=== PATIENT | female | born 1990 | race Caucasian/White ===

== ENCOUNTER 2023-03-28 10:57 | Emergency (ER) | payer OTHER ==
[~2023-03-28] VITALS: Ht 175.3 cm; Wt 145.6 kg
[2023-03-28 11:02] VITALS: TEMP 97.9
[2023-03-28 12:54] VITALS: BP 112/61
== END 2023-03-28 12:54 | disposition home or self-care (01) ==
LOC: ED 10:57
PROC: 2W3DX1Z Immobilization of Left Lower Arm using Splint (ICD-10-PCS; principal; 2023-03-28)
DX: S60.222A Contusion of left hand, initial encounter (principal); X58.XXXA Exposure to other specified factors, initial encounter
CPT/HCPCS: 99282

== ENCOUNTER 2023-06-10 10:17 | Emergency (ER) | payer OTHER ==
[~2023-06-10] VITALS: Ht 175.3 cm; Wt 154.7 kg
[2023-06-10 10:25] VITALS: BP 138/81; TEMP 99
== END 2023-06-10 11:17 | disposition home or self-care (01) ==
LOC: ED 10:17
DX: J06.9 Acute upper respiratory infection, unspecified (principal); J02.8 Acute pharyngitis due to other specified organisms
CPT/HCPCS: 81025; 87635; 87651; 99283; U0003